=== PATIENT | male | born 1985 | race Caucasian/White ===

== ENCOUNTER → 2022-06-29 | Outpatient (CLI) | payer MEDICAID, SELFPAY ==
[2022-06-29 16:34] LABS: Absolute Lymphocyte Count 3.23 X10^3/uL (0.83-4.51); Absolute Neutrophil Count 2.4 X10^3/uL (2.0-7.7); Basophil# 0.08 X10^3/uL; Basophil% 1.2 % (0-1); Eosinophil# 0.21 X10^3/uL; Eosinophils% 3.3 % (0-5); Hematocrit 42.3 % (40-54); Hemoglobin 15.1 g/dL (13.0-16.5); Lymphocyte # 3.23 X10^3/ul (0.83-4.51); Lymphocyte % 50.1 % (19-41); Mean Corp Hgb Conc 35.7 g/dL (32-36); Mean Corpuscular Hgb 30.9 pg (27.0-32.0); Mean Corpuscular Volume 86.7 fL (80-94); Mean Platelet Vol. 9.3 fl (6.2-12.0); Monocyte# 0.48 X10^3/uL; Monocyte% 7.4 % (0-10); NRBC Flagged by Analyzer 0 % (0-5); Neutrophil # 2.43 X10^3/uL (2.7-7.7); Neutrophil % 37.7 % (47-70); Platelet Count 265 K/mm3 (150-450); RBC Distribution Width SD 40.6 fl (35.1-43.9); Red Blood Count 4.88 M/mm3 (4.6-6.2); White Blood Count 6.5 K/mm3 (4.4-11.0)
[2022-06-29 17:09] LABS: ALB/GLOB Ratio 0.9 RATIO (0.9-2.4); AST(SGOT) 22 U/L (15-37); Alanine Aminotransfer ALT/SGPT 35 U/L (16-61); Albumin, Serum 3.6 g/dL (3.2-5.0); Alkaline Phosphatase 76 U/L (45-117); Anion Gap 9 (5-15); BUN 11 mg/dL (7-18); BUN/Creat Ratio 10.9 RATIO (10-20); Calcium,Total 8.7 mg/dL (8.5-10.1); Chloride 107 mmol/L (98-107); Cholesterol 231 mg/dL (200); Creatinine, Serum 1.01 mg/dL (0.70-1.30); EST Glomerular Filtration Rate 87 mL/min (>60); Est Glom Filt Rate - Afr Amer 106 mL/min (>60); Globulin 3.8 g/dL (2.2-4.2); Glucose 98 mg/dL (74-106); High Density Lipoprotein 46 mg/dL; Potassium 3.9 mmol/L (3.5-5.1); Protein, Total 7.4 g/dL (6.4-8.2); Sodium Level 140 mmol/L (136-145); Thyroid Stim Hormone (TSH) 1.16 uIU/mL (0.358-3.74); Triglycerides 181 mg/dL; Very Low Density Lipoprotein 36 mg/dL (5-40)
[2022-06-29 18:58] LABS: Chlamydia Trachomatis by PCR Negative (Negative); Neisserai gonorrhoeae by PCR Negative (Negative); Probe Check PASS; Sample Adequacy Control PASS; Specimen Processing Control PASS
[2022-06-30 12:14] LABS: HIV - WCH Non-Reactive (Nonreactive); Hepatitis B Surface Antigen Non-Reactive (Nonreactive); Hepatitis C Antibody Non-Reactive (Nonreactive); Syphilis Antibodies Non-reactive
[2022-07-05 09:55] LABS: Testosterone, Total 279 ng/dL (264-916)
== END | disposition home or self-care (01) ==
PROVIDERS: PCP Nurse Practitioner Family; Referring Provider Nurse Practitioner Family; Visit Provider Nurse Practitioner Family
DX: Z00.00 Encounter for general adult medical examination without abnormal findings (principal); K92.1 Melena; R63.5 Abnormal weight gain; Z72.51 High risk heterosexual behavior
CPT/HCPCS: 36415; 80053; 80061; 84402; 84403; 84443; 85025; 86703; 86780; 86803; 87340; 87491; 87591

== ENCOUNTER → 2022-07-05 | Outpatient (CLI) | payer MEDICAID, SELFPAY | END | disposition home or self-care (01) | LOC: LABSPEC 14:24 | PROVIDERS: PCP Nurse Practitioner Family; Referring Provider Nurse Practitioner Family; Visit Provider Nurse Practitioner Family | DX: K92.1 Melena (principal); R63.5 Abnormal weight gain | CPT/HCPCS: 82274 ==

== ENCOUNTER → 2022-08-04 | Outpatient (CLI) | payer MEDICAID, SELFPAY | END | disposition home or self-care (01) | PROVIDERS: PCP Nurse Practitioner Family; Referring Provider Nurse Practitioner Family; Visit Provider Nurse Practitioner Family | DX: G47.10 Hypersomnia, unspecified (principal) | CPT/HCPCS: 95801; 95806 ==

== ENCOUNTER → 2022-09-15 | Outpatient (CLI) | payer MEDICAID, SELFPAY ==
--- NOTE | 2022-09-15 09:03 | ECHOD_ITS ---
Reason For Study: OTHER Procedure This was a 2D Doppler, Color Flow transthoracic echocardiogram. Exam performed in department. Left Ventricle Normal LV size. Left ventricular systolic function is normal. The estimated ejection fraction is 70 %. No regional wall motion abnormalities noted. Right Ventricle Normal RV size. Normal systolic function. Atria Normal left atrium. Normal right atrium. Mitral Valve Normal mitral valve. Tricuspid Valve Normal tricuspid valve. Aortic Valve Normal aortic valve. Trisinus/trileaflet aortic valve. Pulmonic Valve Normal pulmonic valve. Great Vessels Normal aortic root. The pulmonary artery is normal size. Normal inferior vena cava. Pericardium/Pleural No pericardial effusion. MMode/2D Measurements & Calculations LVIDd: 4.3 cm IVSd: 1.4 cm Ao root diam: 3.5 cm LVIDs: 2.8 cm LVPWd: 0.89 cm FS: 34.3 % LAV(MOD-bp): 45.9 ml LVAd ap4: 25.5 cm2 SV(MOD-sp4): 38.4 ml LAV(MOD-bp) Indexed: 17.9 ml/m2 LVLd ap4: 8.3 cm LAV(MOD-sp2): 53.9 ml EDV(MOD-sp4): 64.9 ml LAV(MOD-sp4): 34.7 ml EDV(sp4-el): 66.8 ml LVAs ap4: 14.1 cm2 LVLs ap4: 6.5 cm ESV(MOD-sp4): 26.6 ml ESV(sp4-el): 25.9 ml EF(MOD-sp4): 59.1 % EF(sp4-el): 61.2 % SV(sp4-el): 40.9 ml LA A4 area: 15.1 cm2 LA dimension(2D): 4.2 cm RA A4 area: 11.2 cm2 Time Measurements MV dec time: 0.34 sec Doppler Measurements & Calculations MV E max keny: 64.2 cm/sec Lat Peak E' Keny: 15.5 cm/sec Med Peak E' Keny: 8.4 cm/sec MV A max keny: 52.7 cm/sec E/E' lat: 4.1 E/E' med: 7.6 MV E/A: 1.2 MV V2 max: 66.2 cm/sec Ao V2 max: 113.0 cm/sec MV max P.8 mmHg MV dec slope: 192.6 cm/sec2 Ao max P.1 mmHg MV V2 mean: 37.9 cm/sec Ao V2 mean: 78.9 cm/sec MV mean P.70 mmHg Ao mean P.8 mmHg MV V2 VTI: 30.1 cm Ao V2 VTI: 26.0 cm AV (velocity ratio): 0.82 LV V1 max: 97.6 cm/sec LV V1 max P.8 mmHg LV V1 mean P.3 mmHg LV V1 mean: 71.6 cm/sec LV V1 VTI: 21.2 cm ECHO/Echo Complete Interpretation Summary Normal LV size. Left ventricular systolic function is normal. The estimated ejection fraction is 70 %. Structurally normal valves. Ordering Physician: Clifton Carrillo Referring Physician: Clifton Carrillo Performed By: Eliz Vargas RCS
== END | disposition home or self-care (01) ==
LOC: CVS 09:00
PROVIDERS: PCP Nurse Practitioner Family; Referring Provider Nurse Practitioner Family; Visit Provider Nurse Practitioner Family
DX: G47.33 Obstructive sleep apnea (adult) (pediatric) (principal)
CPT/HCPCS: 93306

== ENCOUNTER → 2022-09-21 | Outpatient (CLI) | payer MEDICAID, SELFPAY | END | disposition home or self-care (01) | PROVIDERS: PCP Nurse Practitioner Family; Visit Provider Nurse Practitioner Family | DX: G47.31 Primary central sleep apnea (principal); G47.33 Obstructive sleep apnea (adult) (pediatric) | CPT/HCPCS: 95811 ==

== ENCOUNTER 2022-09-28 08:55 | Outpatient (RCR) | payer MEDICAID, SELFPAY | END 2022-10-19 23:59 | LOC: NS 08:55 | PROVIDERS: PCP Nurse Practitioner Family; Referring Provider Nurse Practitioner Family; Visit Provider Nurse Practitioner Family | DX: Z71.3 Dietary counseling and surveillance (principal); E66.9 Obesity, unspecified; E78.5 Hyperlipidemia, unspecified; G47.33 Obstructive sleep apnea (adult) (pediatric); Z68.38 Body mass index [BMI] 38.0-38.9, adult | CPT/HCPCS: 97802 ==

== ENCOUNTER → 2022-10-07 | Outpatient (CLI) | payer MEDICAID, SELFPAY | END | disposition home or self-care (01) | LOC: SL 10:13 | PROVIDERS: PCP Nurse Practitioner Family; Visit Provider Nurse Practitioner Family | DX: G47.31 Primary central sleep apnea (principal); G47.33 Obstructive sleep apnea (adult) (pediatric) ==

== ENCOUNTER 2022-10-26 10:50 | Outpatient (RCR) | payer MEDICAID, SELFPAY | END 2022-11-19 23:59 | LOC: NS 10:50 | PROVIDERS: PCP Nurse Practitioner Family; Referring Provider Nurse Practitioner Family; Visit Provider Nurse Practitioner Family | DX: Z71.3 Dietary counseling and surveillance (principal); E66.9 Obesity, unspecified; E78.5 Hyperlipidemia, unspecified; G47.33 Obstructive sleep apnea (adult) (pediatric); Z68.38 Body mass index [BMI] 38.0-38.9, adult | CPT/HCPCS: 97803 ==

== ENCOUNTER 2022-11-11 06:25 | Day surgery (SDC) | payer MEDICAID, SELFPAY ==
[2022-11-11] MEDS: Lactated Ringers 1,000 ML 15 ML IV (06:40)
[2022-11-11 06:48] VITALS: BP 149/75; PULSE 88; RESP 18; TEMP 36.4; O2SAT 97; BMI 38.4
--- NOTE | 2022-11-11 07:19 | PCM.HP.BLA ---
History and Physical Date of Admission: 11/11/22 Date of Service:? 07/14/22 MR#: [id number] Acct: [id number] Name:STEPHEN OLMEDO Rep #: [id number] : 1985 ? ? Provider: Dr. Fernandez Irwin MD Age/Sex:? 37/M ? ? Location: [facility] Status: Signed Intake Vital Signs ? 07/14/2207:45 Height 6 ft 1 in Weight: 301 lb BMI 39.6 BP 141/90 H Blood Pressure Location Rt brachial Position Sitting Respiration 17 Pulse 87 Pulse Source Monitor Temp 97.2 F L Temp Source Temporal Pulse Oximetry (%) 98 Oxygen Delivery Method room air Intake Visit Reasons:?Melena/Abnormal Weight Gain Chief Complaint: Melena/Weight gain [employer] Required: No Is patient in pain?: No Allergies penicllin Allergy (Severe, Uncoded 07/14/22 07:47) Anaphylaxis Medications varenicline 0.5 mg (11)-1 mg (42) tablets in a dose pack (Chantix Starting Month Box) See Rx Instructions PO PER PKG DIR #53 tabs 06/29/22 [Rx Confirmed 07/14/22] PFSH Medical History? Blood in stool High risk sexual behavior Hypersomnia No significant medical problems Unexplained weight gain Surgical History? No history of previous surgery Family History? Mother Cervical cancerGrandfather Colon cancerFather Myocardial infarction,? Onset Age: 50 Social History? Smoking Status:? Current every day smoker alcohol intake:? current alcohol intake frequency: holidays/special occasions only substance use type:? does not use what type of physical activity do you participate in:? walking, running and weight training frequency:? 5-6 times per week do you feel safe at home:? Yes HPI HPI HPI: ?Patient is a 37-year-old male who presents for need to schedule diagnostic colonoscopy secondary to bleeding and family history.? They are referred for surgical consultation from Clifton Carrillo NP.? Patient has not had prior colonoscopy.? Patient has no personal history of colon cancer, inflammatory bowel disease, or diverticulitis and in fact this is the first time that he is presented to a provider for a GI specific complaint. They describe their bowel habits as generally normal with soft formed stools and no constipation.? They have approximately 1 bowel movement per day and spend 10+ minutes (they admit to occasional use of their phone while in the bathroom) on the toilet without significant straining.? They have noticed recent bright red blood on the toilet paper and in the bowl water, but denies any observation of dark stools.? There is no history of hemorrhoids that they are aware of, but do admit to some tissue protruding.? They deny any itching or pain.? They do not regularly take fiber supplements but they do consume significant fiber in their regular diet. Patient has a family history of colon cancer diagnosed in a maternal grandfather in his 60s.? Outside of GI considerations, he relates that his father from a heart attack at the age of 42? ? The patient's weight is not stable.? Patient believes that he has gained approximately 100 pounds over the last year or 2.? He states that he has been blessed to be invited to weddings every couple of weeks and has been eating much more than usual.? He reports that his cholesterol laboratories were within normal limits at last check. The patient is not prescribed anticoagulants/blood thinners. Relevant prior abdominal surgical history includes: Noncontributory Patient does not have a significant history of GERD/heartburn ROS General General: No weight change, appetite, fatigue, colon cancer, breast cancer or weakness HEENT HEENT: No difficulty swallowing, eye injury, eye surgery, swollen glands or hoarseness Endo Endocrine: No thyroid disease, diabetes mellitus, thyroid cancer, Hair loss, heat intolerance or cold intolerance Skin Skin: No rash or changing moles Musc Musculoskeletal: No back problems, arthritis, rheumatoid arthritis, gout or joint pain Cardio Cardiovascular: No murmur, pacemaker, heart disease, atrial fibrillation, high blood pressure, heart attack, heart stent, palpitations, shortness of breat with exertion or chest pain Psych Psychiatric: No depression, anxiety or hearing voices Resp Respiratory: No shortness of breath, No sleep apnea, No cough, No COPD, No asthma, No emphysema and No wheezing Gastro Gastrointestinal: No abdominal pain, No nausea or vomiting, No diarrhea, No constipation, Yes blood in stool, No acid reflux, No hemorrhoids, No ulcers, No gallbladder problem and No black,tarry stools Tino Hematologic: No blood thinners, No blood disorders, No bleeding, No anemia and No blood clots Neuro Neurologic: No system reviewed and no additional complaints, except as documented, No as per HPI, No abnormal gait, No abnormal hearing, No abnormal movements, No abnormal speech, No behavioral changes, No burning sensations, No confusion, No convulsions, No disequilibrium, No dizziness, No localized weakness, No frequent falls, No headache(s), No lack of coordination, No loss of vision, No memory loss, No numbness, No other visual disturbances, No radicular pain, No restless legs, No sensory deficit, No syncope, No tingling, No tremor(s), No weakness and No other Exam Const General: cooperative and no acute distress Nutritional Appearance: overweight Orientation: alert, awake and oriented x3 Other: Appears fatigued Resp Effort & Inspection: normal respiratory effort Auscultation: no rales, no rhonchi and no wheezes Cardio Rate: regular rate Rhythm: regular rhythm GI Other: Overweight, nondistended, no scars.? Soft, nontender to palpation x4 quadrants.? No palpable evidence of hepato or splenomegaly.? No visible or palpable hernia Assessment and Plan Assessment and Plan (1) Blood in stool: ?Status:?Acute ?Comment: This is a 37-year-old male who presents for consultation regarding complaints of lower GI bleeding and observation of hematochezia with a family history of colon cancer diagnosed in a paternal grandfather in the sixth decade of life.? During patient's history, description is at least mildly suspicious for hemorrhoidal disease and I have counseled patient about limiting his toilet time.? This would also account for his recent fecal occult blood testing that was negative x3.? However, given his family history and distress over his concerns for possible cancer, I find it reasonable to proceed with a diagnostic colonoscopy.? I did offer an anorectal exam during today's visit, but patient wishes to defer this until his colonoscopy.? Patient is accepting of this recommendation and we discussed in detail the expectations of both procedure as well as the preprocedure prep.? Patient has no further questions, but did state he wished to delay the procedure until September if at all possible due to prearranged travel in August. ?Plan: Plan will be to complete colonoscopy on first mutually agreeable date under local MAC.? Pre-procedure prep discussed and paper instructions provided.? Patient is also made aware that he will need to have a wrecker driver with him the day of the procedure.? Also plan to consent patient for possible hemorrhoid banding during the procedure given the suspicion as discussed above. I have examined the patient the following changes are noted: Patient returns today for his procedure reporting that he still is having some bright red blood per rectum. He notes that this is more frequent than before. He confirms that he is limiting his toilet time after our previous encounter. As a general health update he reports that he has stopped smoking. He confirms that he has completed a bowel prep in anticipation of today's procedure and that his output is now clear. Therefore we will proceed to the endoscopy suite for a colonoscopy under MAC sedation with consenting for hemorrhoid banding as deemed necessary.
--- NOTE | 2022-11-11 07:30 | COLBX_PTH ---
PATIENT: STEPHEN WASHINGTON LOC: EN U#:[id number] AGE/SX: 37/M ROOM: RE11/11/[address]: Dr. Fernandez Irwin MD : 1985 BED: DIS: 11/11/2022 SPEC #: [id number] RECD: 11/11/22 12:21 STATUS: PERFECTO VERNON #: [id number] ADELITA: 11/11/22 07:[address]: Fernandez Irwin DEPT: SURGICAL PATHOLOGY RECD BY: Coleen Silva ENTERED: 11/11/22 13:08 SP TYPE: COLON BX OTHR DR: Clifton Carrillo, SAM Tissues: Sigmoid colon biopsy Procedures: Surgery Specimen Level IV HEADER OPERATION: Colonoscopy (NESTOR), biopsy PRE-OP DIAGNOSIS: Blood in stool TISSUE SUBMITTED: Distal sigmoid polyp biopsy MICROSCOPIC DIAGNOSIS Distal sigmoid polyp, biopsy: Hyperplastic polyp. ROSANNA:nilda 11/12/2022 MICROSCOPIC DESCRIPTION Slides are reviewed. GROSS DESCRIPTION Received in fixative is one container labeled with the patient's name and designated distal sigmoid polyp biopsy. The specimen consists of two irregular fragments of light dyer soft tissue that in aggregate measure 0.5 x 0.5 x 0.1 cm. The specimen is totally submitted in one cassette. / SJ:nilda 11/11/2022 TC:1 CPT: 47639
[2022-11-11 08:16] VITALS: BP 114/70; PULSE 77; RESP 16; TEMP 37.4; O2SAT 97
[2022-11-11 08:20] VITALS: BP 112/61; PULSE 77; RESP 16; O2SAT 93
--- NOTE | 2022-11-11 08:21 | OP.COLON_ITS ---
Patient Name: Virgilio Forman Procedure Date: 11/11/2022 7:14 AM Date of : 1985 Age: 37 Procedure: Colonoscopy Indications: Rectal bleeding Providers: Fernandez Irwin MD Referring MD: Fernandez Irwin MD Medicines: See the Anesthesia note for documentation of the administered medications Patient Profile: Last Colonoscopy: none. The patient's first colonoscopy is today. Complications: No immediate complications. Estimated blood loss: Minimal. Procedure: Pre-Anesthesia Assessment: - The heart rate, respiratory rate, oxygen saturations, blood pressure, adequacy of pulmonary ventilation, and response to care were monitored throughout the procedure. After I obtained informed consent, the scope was passed under direct vision. Throughout the procedure, the patient's blood pressure, pulse, and oxygen saturations were monitored continuously. The Colonoscope was introduced through the anus and advanced to the cecum, identified by the appendiceal orifice, ileocecal valve and palpation. The colonoscopy was somewhat difficult due to significant looping. Successful completion of the procedure was aided by applying abdominal pressure. The patient tolerated the procedure well. The quality of the bowel preparation was adequate to identify polyps. Scope In: 7:27:42 AM Scope Withdrawal Time 0 hours 29 minutes 44 seconds Scope Out: 8:11:15 AM Total Procedure Duration Time 0 hours 43 minutes 33 seconds Findings: A 5 mm, non-bleeding polyp was found in the distal sigmoid colon. The polyp was semi-sessile. Biopsies were taken with a cold forceps for histology. Estimated blood loss was minimal. Internal hemorrhoids were found during retroflexion. The hemorrhoids were Grade II (internal hemorrhoids that prolapse but reduce spontaneously). One band was successfully placed. There was no bleeding during the maneuver. Skin tags were found on perianal exam. Impression: - One 5 mm, non-bleeding polyp in the distal sigmoid colon. Biopsied. - Internal hemorrhoids. Banded. - Perianal skin tags found on perianal exam. Recommendation: - Discharge patient to home (via wheelchair). - Resume previous diet today. - Await pathology results. - Repeat colonoscopy in 5-10 years for surveillance based on pathology results. - Telephone my office for pathology results in 1 week. - Continue present medications. Procedure Code(s): --- Professional --- 35928, Colonoscopy, flexible; with band ligation(s) (eg, hemorrhoids) 59016, Colonoscopy, flexible; with biopsy, single or multiple Diagnosis Code(s): --- Professional --- K64.4, Residual hemorrhoidal skin tags D12.5, Benign neoplasm of sigmoid colon K64.1, Second degree hemorrhoids K62.5, Hemorrhage of anus and rectum CPT copyright 2017 [employer]. All rights reserved. The codes documented in this report are preliminary and upon promotions team leader review may be revised to meet current compliance requirements. Fernandez Irwin MD 11/11/2022 8:21:07 AM This report has been signed electronically. Number of Addenda: 0 Note Initiated On: 11/11/2022 7:14 AM
--- NOTE | 2022-11-11 08:22 | OP.CCLET_ITS ---
11/11/2022 Clifton Carrillo NP [address] [place] [address] [place] [address] Re : Colonoscopy procedure for Virgilio Forman Dear Mr. Carrillo This procedure was performed on October. My impressions and recommendations are as follows: Impressions : - One 5 mm, non-bleeding polyp in the distal sigmoid colon. Biopsied. - Internal hemorrhoids. Banded. - Perianal skin tags found on perianal exam. Recommendations : - Discharge patient to home (via wheelchair). - Resume previous diet today. - Await pathology results. - Repeat colonoscopy in 5-10 years for surveillance based on pathology results. - Telephone my office for pathology results in 1 week. - Continue present medications. My findings are described in the full procedure note, which is enclosed. If I can be of further assistance, please feel free to contact me at Doctor phone number(s): , Work: . Sincerely, Fernandez Irwin MD 11/11/2022 8:21:07 AM This report has been signed electronically.
[2022-11-11 08:25] VITALS: BP 112/61; PULSE 76; RESP 16; O2SAT 93
[2022-11-11 08:31] VITALS: BP 115/68; PULSE 71; RESP 16; O2SAT 94
[2022-11-11 08:34] VITALS: BP 116/80; PULSE 74; RESP 16; TEMP 36.9; O2SAT 96
[2022-11-11] MEDS: Acetaminophen 325 MG Tablet 650 MG PO (08:50)
== END 2022-11-11 08:56 | disposition home or self-care (01) ==
LOC: EN 06:27 → AC 06:29
PROVIDERS: PCP Nurse Practitioner Family; Referring Provider Nurse Practitioner Family; Visit Provider Surgery
PROC: 0DJD8ZZ Inspection of Lower Intestinal Tract, Via Natural or Artificial Opening Endoscopic (ICD-10-PCS; CPT 45378; principal; 2022-11-11 07:25)
DX: K63.5 Polyp of colon (principal); K64.1 Second degree hemorrhoids; G47.31 Primary central sleep apnea; K62.5 Hemorrhage of anus and rectum; Z80.0 Family history of malignant neoplasm of digestive organs; Z87.891 Personal history of nicotine dependence
CPT/HCPCS: 45380; 45398; 88305; J7120; J2405

== ENCOUNTER → 2023-07-29 | Outpatient (CLI) | payer OTHER, MEDICAID, SELFPAY ==
[2023-07-29 15:50] LABS: Absolute Lymphocyte Count 4.68 X10^3/uL (0.83-4.51); Absolute Neutrophil Count 2.9 X10^3/uL (2.0-7.7); Basophil# 0.08 X10^3/uL; Basophil% 0.9 % (0-1); Eosinophil# 0.29 X10^3/uL; Eosinophils% 3.3 % (0-5); Hematocrit 45.8 % (40-54); Hemoglobin 15.4 g/dL (13.0-16.5); Lymphocyte # 4.68 X10^3/ul (0.83-4.51); Lymphocyte % 53.9 % (19-41); Mean Corp Hgb Conc 33.6 g/dL (32-36); Mean Corpuscular Hgb 29.8 pg (27.0-32.0); Mean Corpuscular Volume 88.6 fL (80-94); Mean Platelet Vol. 9.5 fl (6.2-12.0); Monocyte# 0.68 X10^3/uL; Monocyte% 7.8 % (0-10); NRBC Flagged by Analyzer 0 % (0-5); Neutrophil # 2.93 X10^3/uL (2.7-7.7); Neutrophil % 33.8 % (47-70); Platelet Count 308 K/mm3 (150-450); RBC Distribution Width CV 13.4 % (11.6-14.6); RBC Distribution Width SD 43.5 fl (35.1-43.9); Red Blood Count 5.17 M/mm3 (4.6-6.2); White Blood Count 8.7 K/mm3 (4.4-11.0)
[2023-07-29 16:58] LABS: ALB/GLOB Ratio 0.9 RATIO (0.9-2.4); AST(SGOT) 22 U/L (15-37); Alanine Aminotransfer ALT/SGPT 46 U/L (16-61); Albumin, Serum 3.6 g/dL (3.2-5.0); Alkaline Phosphatase 77 U/L (45-117); Anion Gap 2 (5-15); BUN 16 mg/dL (7-18); BUN/Creat Ratio 14.5 RATIO (10-20); Calcium,Total 9.4 mg/dL (8.5-10.1); Chloride 108 mmol/L (98-107); Cholesterol 247 mg/dL (200); EST Glomerular Filtration Rate 79 mL/min (>60); Est Glom Filt Rate - Afr Amer 95 mL/min (>60); Glucose 81 mg/dL (74-106); High Density Lipoprotein 42 mg/dL; Potassium 4.1 mmol/L (3.5-5.1); Protein, Total 7.6 g/dL (6.4-8.2); Sodium Level 139 mmol/L (136-145); Triglycerides 295 mg/dL; Very Low Density Lipoprotein 59 mg/dL (5-40)
[2023-07-29 17:04] LABS: HIV - WCH Non-Reactive (Nonreactive); Syphilis Antibodies Non-reactive
[2023-07-30 09:22] LABS: Hemoglobin A1c 4.9 % (3.8-5.6)
[2023-07-30 15:21] LABS: Thyroid Stim Hormone (TSH) 2.59 uIU/mL (0.358-3.74)
== END | disposition home or self-care (01) ==
LOC: BFHLAB 11:51
PROVIDERS: PCP Family Medicine; Visit Provider Family Medicine
DX: Z00.00 Encounter for general adult medical examination without abnormal findings (principal); Z20.9 Contact with and (suspected) exposure to unspecified communicable disease; E29.1 Testicular hypofunction; R53.83 Other fatigue; R05.9 Cough, unspecified
CPT/HCPCS: 36415; 80053; 80061; 83036; 84403; 84443; 85025; 86703; 86780; 87491; 87591; 87635

== ENCOUNTER → 2023-10-01 | Outpatient (CLI) | payer OTHER, SELFPAY ==
--- OUTSIDE RECORDS SUMMARY | 2023-10-01 11:54 | XMS RPT_ITS | CCD ---
Author Name Unknown Address [address] [place] [address] Organization [facility] Care Team Providers Care Statistical Developer Name Role Phone JOHN PIMENTEL Primary Care Physician JUHI BERUMEN, MIMI Attending Unavailable TORY PIMENTEL Primary Care Unavailable Results Test Name Value Interpretation Reference Range Facil ity Encounters Encounter Date Encounter Type Care Provider Facility Start: 09-30-2022 End: 10-01-2022 ambulatory MIMI REYNAGA MD Facility:B Start: 09-30-2022 End: 09-30-2022 Patient encounter procedure MIMI REYNAGA MD [facility] Payers Date Payer Category Payer Unknown [id number] 1985 Unknown [id number] Social History Date Type Detail Facility Tobacco smoking status No Smoking Status Entered [facility] Sex Assigned At Male [facility] Clinical Note 09-30-2022 Note Date & Type Note Facility 09-30-2022 Note ORIGINAL HISTORY: Sleep apnea COMPARISON: No TECHNIQUE: 1. Sagittal and axial T1-weighted images. 2. Axial FLAIR images. 3. Axial T2-weighted and T2*-weighted images. 4. Axial diffusion-weighted images with ADC map. 5. Axial, sagittal and coronal T1-weighted images following uncomplicated administration of intravenous gadolinium contrast. 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 The ventricles and sulci are otherwise normal in size and configuration. There are no abnormal intra or extra-axial fluid collections. Mcmahon-white matter differentiation is maintained. There is no abnormal restriction of diffusion. There is no abnormal enhancement of the brain or its coverings. A small right frontal developmental venous anomaly is incidentally noted. The orbital contents are normal in appearance. There is left maxillary sinus disease. IMPRESSION: Other than mild tonsillar ectopia, unremarkable examination of the brain. Interpreted by: Tam Aguiar MD Preliminary Report By: Tam Aguiar MD Electronically signed By Tam Aguiar MD Dictated Date: 09/30/2022 3:19:25 PM Prelim Date: 09/30/2022 3:24:01 PM Sign Date: 09/30/2022 3:24:01 PM Ordering Provider: [facility] Clinical Note 09-30-2022 Note Date & Type Note Facility 09-30-2022 Note ORIGINAL HISTORY: Sleep apnea COMPARISON: No TECHNIQUE: 1. Sagittal and axial T1-weighted images. 2. Axial FLAIR images. 3. Axial T2-weighted and T2*-weighted images. 4. Axial diffusion-weighted images with ADC map. 5. Axial, sagittal and coronal T1-weighted images following uncomplicated administration of intravenous gadolinium contrast. 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 The ventricles and sulci are otherwise normal in size and configuration. There are no abnormal intra or extra-axial fluid collections. Mcmahon-white matter differentiation is maintained. There is no abnormal restriction of diffusion. There is no abnormal enhancement of the brain or its coverings. A small right frontal developmental venous anomaly is incidentally noted. The orbital contents are normal in appearance. There is left maxillary sinus disease. IMPRESSION: Other than mild tonsillar ectopia, unremarkable examination of the brain. Interpreted by: Tam Aguiar MD Preliminary Report By: Tam Aguiar MD Electronically signed By Tam Aguiar MD Dictated Date: 09/30/2022 3:19:25 PM Prelim Date: 09/30/2022 3:24:01 PM Sign Date: 09/30/2022 3:24:01 PM Ordering Provider: [facility] Evaluation + Plan note Note Date & Type Note Facility Evaluation + Plan note No data available for this section [facility] Hospital Discharge instructions Note Date & Type Note Facility Hospital Discharge instructions No data available for this section [facility] Summary Purpose Family History No Family History Records FoundNo Family History Records Found Advance Directives No Advanced Directives Records FoundNo Advanced Directives Records Found Additional Source Comments (unrecognized sect ion and content) No Status Records FoundNo Status Records Found INFORMATION SOURCE (unrecogn ized section and content) DATE CREATED AUTHOR AUTHOR'S ORGANIZ ATION 10/01/2022 [facility] ([place] Care Team (unrecognized sect ion and content) Care Team Personnel Name: TORY PIMENTEL Member Role: Primary Care Physician Address: Address: [address] [place], [place] [address] FOR RECORDS PERTAINING TO PATIENTS WHO ARE OR HAVE BEEN ENROLLED IN A CHEMICAL DEPENDENCY/SUBSTANCEABUSE PROGRAM, SOME INFORMATION MAY BE OMITTED. This clinical summary was aggregated from multiple sources. Caution should be exercised in using it in the provision of clinical care. This summary normalizes information from multiple sources, and as a consequence, information in this document may materially change the coding, format and clinical context of patient data. In addition, data may be omitted in some cases. CLINICAL DECISIONS SHOULD BE BASED ON THE PRIMARY CLINICAL RECORDS. [facility] [employer] [facility]. provides no warranty or guarantee of the accuracy or completeness of information in this document.
[2023-10-01 12:32] LABS: Amphetamine Urine VISTA NEGATIVE (<1000 ng/mL); Barbiturate Urine VISTA NEGATIVE (< 200 ng/mL); Benzodiazepine Urine VISTA NEGATIVE (< 200 ng/mL); Cocaine Urine VISTA NEGATIVE (< 300 ng/mL); Ecstacy Urine VISTA NEGATIVE (< 500 ng/mL); Methadone Urine VISTA NEGATIVE (< 300 ng/mL); PCP Urine VISTA NEGATIVE (< 25 ng/mL); THC Urine VISTA POSITIVE (< 50 ng/mL); Vista UDS pH Range 6
== END | disposition home or self-care (01) ==
LOC: LAB 11:51
PROVIDERS: PCP Family Medicine; Referring Provider Family Medicine; Visit Provider Family Medicine
DX: F90.9 Attention-deficit hyperactivity disorder, unspecified type (principal); Z79.899 Other long term (current) drug therapy
CPT/HCPCS: 80307

== ENCOUNTER → 2024-01-25 | Outpatient (CLI) | payer OTHER, SELFPAY ==
--- NOTE | 2024-01-25 15:31 | RAD_ITS ---
EXAM: XR RIGHT FOOT COMPLETE, 3 OR MORE VIEWS CLINICAL INDICATION: RULE OUT FRACTURE TECHNIQUE: Frontal, lateral and oblique views of the right foot. COMPARISON: No relevant prior studies available. FINDINGS: BONES/JOINTS: Unremarkable. No acute fracture. No subluxation. Normal alignment. Preservation of the joint space. No sclerotic or destructive changes observed. SOFT TISSUES: There is soft tissue swelling over the dorsum of foot. No radiopaque foreign body. RAD/Foot min 3 Views IMPRESSION: Soft tissue swelling with no acute osseous abnormality. Electronically Signed: Reilly Siegel MD at 16:19 EDT ,
--- NOTE | 2024-01-25 15:31 | RAD_ITS ---
EXAM: XR RIGHT ANKLE COMPLETE, 3 OR MORE VIEWS CLINICAL INDICATION: RULE OUT FRACTURE TECHNIQUE: Frontal, lateral and oblique views of the right ankle. COMPARISON: No relevant prior studies available. FINDINGS: BONES/JOINTS: Unremarkable. No acute fracture. No subluxation. Normal alignment. Preservation of the joint space. No sclerotic or destructive changes observed. SOFT TISSUES: There is mild soft tissue swelling over the medial malleolus. No radiopaque foreign body. RAD/Ankle min 3 Views IMPRESSION: Soft tissue swelling with no osseous abnormalities. Electronically Signed: Reilly Siegel MD at 16:49 EDT ,
== END | disposition home or self-care (01) ==
LOC: MTLAB 15:30
PROVIDERS: PCP Family Medicine; Referring Provider Nurse Practitioner Family; Visit Provider Nurse Practitioner Family
DX: M79.671 Pain in right foot (principal); M79.661 Pain in right lower leg; M25.571 Pain in right ankle and joints of right foot
CPT/HCPCS: 73610; 73630

== ENCOUNTER → 2024-08-07 | Outpatient (CLI) | payer OTHER, SELFPAY ==
[2024-08-07 15:11] LABS: Absolute Lymphocyte Count 3.21 X10^3/uL (0.83-4.51); Absolute Neutrophil Count 2.4 X10^3/uL (2.0-7.7); Basophil# 0.05 X10^3/uL; Basophil% 0.8 % (0-1); Eosinophil# 0.21 X10^3/uL; Eosinophils% 3.3 % (0-5); Hematocrit 45.9 % (40-54); Hemoglobin 15.6 g/dL (13.0-16.5); Lymphocyte # 3.21 X10^3/ul (0.83-4.51); Lymphocyte % 49.8 % (19-41); Mean Corpuscular Hgb 30.2 pg (27.0-32.0); Mean Corpuscular Volume 88.8 fL (80-94); Mean Platelet Vol. 9.2 fl (6.2-12.0); Monocyte# 0.52 X10^3/uL; Monocyte% 8.1 % (0-10); NRBC Flagged by Analyzer 0 % (0-5); Neutrophil # 2.43 X10^3/uL (2.7-7.7); Neutrophil % 37.5 % (47-70); Platelet Count 310 K/mm3 (150-450); RBC Distribution Width CV 12.5 % (11.6-14.6); RBC Distribution Width SD 40.8 fl (35.1-43.9); Red Blood Count 5.17 M/mm3 (4.6-6.2); White Blood Count 6.5 K/mm3 (4.4-11.0)
[2024-08-07 15:27] LABS: AST(SGOT) 19 U/L (15-37); Alanine Aminotransfer ALT/SGPT 41 U/L (16-61); Albumin, Serum 3.6 g/dL (3.2-5.0); Alkaline Phosphatase 66 U/L (45-117); Anion Gap 3 (5-15); BUN 11 mg/dL (7-18); BUN/Creat Ratio 10.1 RATIO (10-20); Calcium,Total 8.8 mg/dL (8.5-10.1); Chloride 106 mmol/L (98-107); Cholesterol 246 mg/dL (200); Creatinine, Serum 1.09 mg/dL (0.70-1.30); EST Glomerular Filtration Rate 79 mL/min (>60); Est Glom Filt Rate - Afr Amer 96 mL/min (>60); Globulin 3.7 g/dL (2.2-4.2); Glucose 107 mg/dL (74-106); High Density Lipoprotein 55 mg/dL; Potassium 3.9 mmol/L (3.5-5.1); Protein, Total 7.3 g/dL (6.4-8.2); Sodium Level 139 mmol/L (136-145); Triglycerides 191 mg/dL; Very Low Density Lipoprotein 38 mg/dL (5-40)
[2024-08-07 16:22] LABS: Hemoglobin A1c 5.1 % (3.8-5.6)
== END | disposition home or self-care (01) ==
LOC: BFHLAB 13:22
PROVIDERS: PCP Family Medicine; Referring Provider Family Medicine; Visit Provider Family Medicine
DX: Z00.00 Encounter for general adult medical examination without abnormal findings (principal); R53.83 Other fatigue
CPT/HCPCS: 36415; 80053; 80061; 83036; 84403; 85025